=== PATIENT | female | born 1955 | race Caucasian/White ===

== ENCOUNTER 2016-09-21 10:36 | Outpatient (CLI) | payer MEDICARE, MEDICAID | END 2016-09-21 23:59 | disposition home or self-care (01) | DX: R42 Dizziness and giddiness (principal); G43.909 Migraine, unspecified, not intractable, without status migrainosus; E03.9 Hypothyroidism, unspecified ==

== ENCOUNTER 2016-11-05 09:00 | Outpatient (CLI) | payer MEDICARE, MEDICAID | END 2016-11-05 09:01 | disposition home or self-care (01) | DX: Z79.899 Other long term (current) drug therapy (principal) ==

== ENCOUNTER 2016-11-07 15:50 | Emergency (ER) | payer MEDICARE, MEDICAID | END 2016-11-07 17:26 | disposition home or self-care (01) | DX: J32.8 Other chronic sinusitis (principal); B97.89 Other viral agents as the cause of diseases classified elsewhere; Z77.120 Contact with and (suspected) exposure to mold (toxic); I10 Essential (primary) hypertension; E78.00 Pure hypercholesterolemia, unspecified; E03.9 Hypothyroidism, unspecified; M79.7 Fibromyalgia ==

== ENCOUNTER 2017-03-11 06:42 | Outpatient (CLI) | payer MEDICARE, MEDICAID ==
[2017-03-11 18:20] LABS: POTASSIUM 3.1 mmol/L (3.5-5.0)
== END 2017-03-11 06:43 | disposition home or self-care (01) ==
LOC: LAB.S 06:42
PROVIDERS: ATTEND Nurse Practitioner Family
DX: E87.6 Hypokalemia (principal); E03.9 Hypothyroidism, unspecified
CPT/HCPCS: 36415; 84132; 84443

== ENCOUNTER 2017-05-01 13:09 | Outpatient (CLI) | payer MEDICARE, MEDICAID | END 2017-05-01 13:10 | disposition home or self-care (01) | LOC: LAB.F 13:09 | PROVIDERS: ATTEND Nurse Practitioner Family | DX: E87.6 Hypokalemia (principal) | CPT/HCPCS: 36415; 84132 ==

== ENCOUNTER 2017-08-08 15:35 | Outpatient (CLI) | payer MEDICARE, MEDICAID ==
--- NOTE | 2017-08-09 15:25 | Mammography Report ---
DIGITAL SCREENING MAMMOGRAM: 08/08/2017 CLINICAL INDICATION: A 61-year-old with history of benign biopsy, for screening. COMPARISON: 03/2016. TECHNIQUE: Routine CC and MLO projections were obtained of the breasts. Bilateral laterally exaggerated craniocaudal views. FINDINGS: The breasts again demonstrate scattered fibroglandular densities bilaterally. A few punctate, typically benign calcifications are present. No suspicious masses, clustered microcalcifications, or regions of architectural distortion are identified. IMPRESSION: BENIGN FINDINGS. RECOMMENDATION: ROUTINE ANNUAL SCREENING UNLESS OTHERWISE CLINICALLY INDICATED. BIRADS CATEGORY 2-BENIGN FINDINGS. STANDARD QUALIFYING STATEMENTS: 1. This examination was reviewed with the aid of Computer-Aided Detection (CAD). 2. A negative or benign imaging report should not delay biopsy if clinically suspicious findings are present. Consider surgical consultation if warranted. More than 5% of cancers are not identified by imaging. 3. Dense breasts may obscure an underlying neoplasm. TD: 08/09/2017 15:21
== END 2017-08-08 15:36 | disposition home or self-care (01) ==
LOC: DI.S 15:35
PROVIDERS: ATTEND Obstetrics & Gynecology
DX: Z12.31 Encounter for screening mammogram for malignant neoplasm of breast (principal)
CPT/HCPCS: 77067

== ENCOUNTER 2018-02-17 11:49 | Outpatient (CLI) | payer MEDICARE, MEDICAID ==
[2018-02-17 18:14] LABS: THYROID STIMULATING HORMONE 1.27 uIU/mL (0.34-5.60)
== END 2018-02-17 11:50 ==
LOC: LAB.S 11:49
PROVIDERS: ATTEND Nurse Practitioner Family
DX: R53.83 Other fatigue (principal)
CPT/HCPCS: 36415; 82607; 84443

== ENCOUNTER 2018-12-22 15:33 | Emergency (ER) | payer MEDICARE, MEDICAID ==
[2018-12-22 15:38] VITALS: BP 182/86
--- NOTE | 2018-12-22 16:52 | ED Physician Documentation ---
PD MARCELLO HEENT - Stated complaint Stated Complaint: TOOTH PX - Chief complaint Chief Complaint: General - History obtained from History obtained from: Patient - History of Present Illness Timing - onset: How many days ago (few) Timing - duration: Days (few) Timing - details: Gradual onset, Still present (much worse today) Location: Tooth (left lower with gum swelling for 1-2 days) Worsens: Swalllowing, Temperatures, Other (chewing) Recently seen: Not recently seen Review of Systems Constitutional: denies: Fever, Myalgias Nose: denies: Rhinorrhea / runny nose, Congestion Throat: denies: Sore throat Respiratory: denies: Cough PD PAST MEDICAL HISTORY - Past Medical History Cardiovascular: Hypertension, High cholesterol Respiratory: None Endocrine/Autoimmune: HyPOthyroidism GI: None : None Psych: None Musculoskeletal: Fibromyalgia, Chronic back pain Derm: None - Past Surgical History General: Cholecystectomy, Appendectomy Ortho: Rotator cuff repair, Carpal Tunnel surgery, Spine surgery, 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, Hysterectomy, Oophrectomy, Other HEENT: Other - Present Medications Home Medications: Ambulatory Orders Medication Instructions Recorded Confirmed Bupropion HCl [Wellbutrin Xl] 300 mg PO DAILY 04/21/15 10/24/15 Diclofenac Sodium [Voltaren] 100 gm TP DAILY PRN 04/21/15 10/24/15 Estradiol Valerate [Delestrogen] 10 mg IM ONCE 04/21/15 10/24/15 Lidocaine [Lidoderm] 700 mg TP ONCE PRN 04/21/15 10/24/15 Pregabalin [Lyrica] 300 mg ORAL DAILY 04/21/15 10/24/15 RX: Levothyroxine [Synthroid] 100 mg ORAL DAILY 04/21/15 10/24/15 RX: Topiramate 100 mg PO DAILY 04/21/15 10/24/15 Valsartan/Hydrochlorothiazide 1 tab ORAL DAILY 04/21/15 10/24/15 [Diovan Hct 80-12.5 mg Tablet] raNITIdine [Zantac] 150 mg PO BID 04/21/15 10/24/15 Multivitamin [Multi-Vitamin Daily] 1 ea PO DAILY 05/17/15 10/24/15 RX: Vit D3/Folic Acid/B2/B6/B12 2,000 ea PO QDBREAKFAST 05/17/15 10/24/15 [Folgard Tablet] Guaifenesin/Pseudoephedrne HCl 1 each PO BID PRN #20 tab.er.12h 11/07/16 [Mucinex D ER 600-60 mg Tablet] Mometasone Furoate [Nasonex] 1 spray NS BID #1 spray.pump 11/07/16 RX: predniSONE [Deltasone] 60 mg PO DAILY 5 Days tablet 11/07/16 guaiFENesin/CODEINE [Robitussin AC] 5 - 10 ml PO Q6H PRN #120 ml 11/07/16 Hydrocodone/Acetaminophen [[place] 1 - 2 each PO Q6H PRN #20 tablet 12/22/18 5-325 Tablet] RX: Clindamycin HCl [Clindamycin 300 mg PO TID #21 capsule 12/22/18 300MG CAP] RX: Naproxen 375 mg PO BID #20 tablet 12/22/18 - Allergies Allergies/Adverse Reactions: Allergies Allergy/AdvReac Type Severity Reaction Status Date / Time prochlorperazine AdvReac Anxiety Verified 12/22/18 15:38 [From Compazine] prochlorperazine edisylate * AdvReac Anxiety Verified 12/22/18 15:38 [From Compazine] prochlorperazine maleate * AdvReac Anxiety Verified 12/22/18 15:38 [From Compazine] PD ED PE NORMAL - Vitals Vital signs reviewed: Yes - General General: Alert and oriented X 3, Well developed/nourished, Other (appears in pain) - HEENT HEENT: Pharynx benign. No: Dentition benign (multiple caries. Left lower tooth with decay and has swelling/tender along gum line. No notable fluctuance per se. ) - Neck Neck: Supple, no meningeal sign, No adenopathy - Cardiac Cardiac: RRR, No murmur - Respiratory Respiratory: Clear bilaterally Results - Vitals Vitals: Vital Signs - 24 hr 12/22/18 15:35 Temperature 36.7 C Heart Rate 82 Respiratory 14 Rate Blood Pressure 182/86 H O2 Saturation 99 Oxygen O2 Source Room air PD MEDICAL DECISION MAKING - ED course Complexity details: considered differential (left lower dental infection), d/w patient Departure - Departure Disposition: 01 Home, Self Care Clinical Impression: Infected dental caries Condition: Stable Record reviewed to determine appropriate education?: Yes Instructions: ED Abscess Dental Follow-Up: Gilma Souza PA-C [Primary Care Provider] - Prescriptions: RX: Clindamycin HCl [Clindamycin 300MG CAP] 300 mg PO TID #21 capsule Hydrocodone/Acetaminophen [[place] 5-325 Tablet] 1 - 2 each PO Q6H PRN #20 tablet PRN Reason: Pain RX: Naproxen 375 mg PO BID #20 tablet Comments: You can use some ice or cool towels to the gum area periodically to help reduce some of the swelling. Only do that if it does not cause it to hurt more. Use some anti-inflammatories such as naproxen twice daily with food. Add Tylenol or hydrocodone as needed for pain. Clindamycin as directed for the next week for the infection. Follow-up with your dentist as the soonest appointment for recheck and more definitive care of the tooth area. Discharge Date/Time: 12/22/18 17:36
[2018-12-22] MEDS ORDERED: HYDROcod/ACETAM 5/325 MG TABLET PO STA (17:12)
[2018-12-22] MEDS ORDERED: NAPROXEN 250 MG TABLET PO STA (17:13)
[2018-12-22] MEDS ORDERED: CLINDAMYCIN 150 MG CAPSULE PO STA (17:13)
== END 2018-12-22 17:36 | disposition home or self-care (01) ==
LOC: ED 15:33
DX: K04.7 Periapical abscess without sinus (principal); K02.9 Dental caries, unspecified; I10 Essential (primary) hypertension
CPT/HCPCS: 99283; A9270

== ENCOUNTER 2018-12-30 17:15 | Emergency (ER) | payer MEDICARE, MEDICAID ==
[2018-12-30 17:28] VITALS: BP 174/87
--- NOTE | 2018-12-30 17:55 | ED Physician Documentation ---
History of Present Illness - Stated complaint Stated Complaint: LT ARM SWELL/BRUISE BITE - Chief complaint Chief Complaint: Ext Problem - History obtained from History obtained from: Patient - History of Present Illness Timing: Today Pain level max: 5 Pain level now: 3 Improved by: rest Worsened by: nothing - Additonal information Additional information: Patient states that she was moving a basket today when she thinks she was bit by an insect. States redness and swelling noted to the volar aspect of the left wrist. As this decreased, bruising became apparent. Worse with movement and better with rest. She states that it is painful. She denies any trauma. Denies falling. Has full range of motion of the wrist. No numbness or tingling. 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 : None HEENT: None Psych: None Musculoskeletal: Fibromyalgia, Chronic back pain Derm: None - Past Surgical History Past Surgical History: Yes General: Cholecystectomy, Appendectomy Ortho: Rotator cuff repair, Carpal Tunnel surgery, Spine surgery, 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, Hysterectomy, Oophrectomy, Other HEENT: Other - Present Medications Home Medications: Ambulatory Orders Medication Instructions Recorded Confirmed Bupropion HCl [Wellbutrin Xl] 300 mg PO DAILY 04/21/15 10/24/15 Diclofenac Sodium [Voltaren] 100 gm TP DAILY PRN 04/21/15 10/24/15 Estradiol Valerate [Delestrogen] 10 mg IM ONCE 04/21/15 10/24/15 Levothyroxine [Synthroid] 100 mg ORAL DAILY 04/21/15 10/24/15 Lidocaine [Lidoderm] 700 mg TP ONCE PRN 04/21/15 10/24/15 Pregabalin [Lyrica] 300 mg ORAL DAILY 04/21/15 10/24/15 Topiramate 100 mg PO DAILY 04/21/15 10/24/15 Valsartan/Hydrochlorothiazide 1 tab ORAL DAILY 04/21/15 10/24/15 [Diovan Hct 80-12.5 mg Tablet] raNITIdine [Zantac] 150 mg PO BID 04/21/15 10/24/15 Multivitamin [Multi-Vitamin Daily] 1 ea PO DAILY 05/17/15 10/24/15 Vit D3/Folic Acid/B2/B6/B12 2,000 ea PO QDBREAKFAST 05/17/15 10/24/15 [Folgard Tablet] Guaifenesin/Pseudoephedrne HCl 1 each PO BID PRN #20 tab.er.12h 11/07/16 [Mucinex D ER 600-60 mg Tablet] Mometasone Furoate [Nasonex] 1 spray NS BID #1 spray.pump 11/07/16 guaiFENesin/CODEINE [Robitussin AC] 5 - 10 ml PO Q6H PRN #120 ml 11/07/16 predniSONE [Deltasone] 60 mg PO DAILY 5 Days tablet 11/07/16 Clindamycin HCl [Clindamycin 300MG 300 mg PO TID #21 capsule 12/22/18 CAP] Hydrocodone/Acetaminophen [[place] 1 - 2 each PO Q6H PRN #20 tablet 12/22/18 5-325 Tablet] Naproxen 375 mg PO BID #20 tablet 12/22/18 - Allergies Allergies/Adverse Reactions: Allergies Allergy/AdvReac Type Severity Reaction Status Date / Time prochlorperazine AdvReac Anxiety Verified 12/30/18 17:28 [From Compazine] prochlorperazine edisylate * AdvReac Anxiety Verified 12/30/18 17:28 [From Compazine] prochlorperazine maleate * AdvReac Anxiety Verified 12/30/18 17:28 [From Compazine] - Social History Does the pt smoke?: No Smoking Status: Never smoker Does the pt drink ETOH?: No Does the pt have substance abuse?: Yes Substance Use and Type: Marijuana - Immunizations Immunizations are current?: Yes - POLST Patient has POLST: No PD ED PE NORMAL - Vitals Vital signs reviewed: Yes - General General: Alert and oriented X 3, No acute distress - HEENT HEENT: Moist mucous membranes - Neck Neck: Supple, no meningeal sign - Extremities Extremities: Other (L wrist - Ecchymosis to the volar aspect of the wrist as well as the thenar eminence. No scaphoid tenderness. No bony tenderness. Full range of motion of the wrist without pain. Neurovascular intact. No erythema to suggest cellulitis.) - Neuro Neuro: Alert and oriented X 3 Results - Vitals Vitals: Vital Signs - 24 hr 12/30/18 17:22 Temperature 37.3 C Heart Rate 78 Respiratory 14 Rate Blood Pressure 174/87 H O2 Saturation 100 Oxygen O2 Source Room air PD MEDICAL DECISION MAKING - ED course Complexity details: considered differential, d/w patient ED course: Patient adamantly denies any trauma. Her history sounds consistent with a mild allergic reaction that had and now has residual bruising. She requests a splint for comfort. Refuses an xray. Placed in a Velcro splint. We will follow-up with her doctor for further care. No need for antibiotics or steroids at this time. Patient counseled regarding signs and symptoms for which I believe and urgent re-evaluation would be necessary. Patient with good understanding of and agreement to plan and is comfortable going home at this time This document was made in part using voice recognition software. While efforts are made to proofread this document, sound alike and grammatical errors may occur. Departure - Departure Disposition: 01 Home, Self Care Clinical Impression: Insect bite Qualifiers: Encounter type: initial encounter Site of insect bite: wrist Laterality: left Qualified Code(s): S60.862A - Insect bite (nonvenomous) of left wrist, initial encounter Condition: Good Instructions: ED Bite Insect Follow-Up: Gilma Souza PA-C [Primary Care Provider] - Within 3 Days Comments: The cause of your symptoms is unclear. Wear the splint to help with any discomfort for the next 2 days and then remove it. Return if you worsen. Especially for increasing redness, fevers or pain. Discharge Date/Time: 12/30/18 18:10
== END 2018-12-30 18:10 | disposition home or self-care (01) ==
LOC: ED 17:15
DX: S60.862A Insect bite (nonvenomous) of left wrist, initial encounter (principal); W57.XXXA Bitten or stung by nonvenomous insect and other nonvenomous arthropods, initial encounter; I10 Essential (primary) hypertension
CPT/HCPCS: 99282; 99283

== ENCOUNTER 2019-02-18 10:41 | Outpatient (CLI) | payer MEDICARE, MEDICAID | END 2019-02-18 10:42 | disposition home or self-care (01) | LOC: LAB.S 10:41 | PROVIDERS: ATTEND Physician Assistant Medical | DX: E78.5 Hyperlipidemia, unspecified (principal); E87.6 Hypokalemia; Z79.899 Other long term (current) drug therapy; E03.9 Hypothyroidism, unspecified | CPT/HCPCS: 80053; 80061; 83721; 84443; 85025 ==

== ENCOUNTER 2019-02-20 12:34 | Emergency (ER) | payer MEDICARE, MEDICAID ==
[2019-02-20 12:44] VITALS: BP 149/82
[2019-02-20] MEDS ORDERED: oxyCODONE 5 MG TABLET PO STA (12:56)
--- NOTE | 2019-02-20 12:58 | ED Physician Documentation ---
PD HPI HEAD INJURY - Stated complaint Stated Complaint: L KNEE/HEAD INJURY - Chief complaint Chief Complaint: Trauma Hd/Nk - History obtained from History obtained from: Patient - History of Present Illness Mechanism of head injury: Fell (This is a very pleasant 63-year-old woman with history of fibromyalgia who presents after a trip and fall forward when she was going her door. It happened around 11 AM. She is wearing flip-flops and simply tripped on the threshold. Hit her forehead on the hardwood floor and also hit her left knee. She is not sure if she remembers the whole thing, there is some partial amnesia. Now complains of frontal headache and severe left knee pain. She has some difficulty walking because of that. No other injuries.) Review of Systems Constitutional: denies: Fever, Chills Cardiac: denies: Chest pain / pressure, Palpitations Respiratory: denies: Dyspnea, Cough GI: reports: Nausea. 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, Hysterectomy, Oophrectomy, Other HEENT: Other - Present Medications Home Medications: Ambulatory Orders Medication Instructions Recorded Confirmed Bupropion HCl [Wellbutrin Xl] 300 mg PO DAILY 04/21/15 10/24/15 Diclofenac Sodium [Voltaren] 100 gm TP DAILY PRN 04/21/15 10/24/15 Estradiol Valerate [Delestrogen] 10 mg IM ONCE 04/21/15 10/24/15 Levothyroxine [Synthroid] 100 mg ORAL DAILY 04/21/15 10/24/15 Lidocaine [Lidoderm] 700 mg TP ONCE PRN 04/21/15 10/24/15 Pregabalin [Lyrica] 300 mg ORAL DAILY 04/21/15 10/24/15 Topiramate 100 mg PO DAILY 04/21/15 10/24/15 Valsartan/Hydrochlorothiazide 1 tab ORAL DAILY 04/21/15 10/24/15 [Diovan Hct 80-12.5 mg Tablet] raNITIdine [Zantac] 150 mg PO BID 04/21/15 10/24/15 Multivitamin [Multi-Vitamin Daily] 1 ea PO DAILY 05/17/15 10/24/15 Vit D3/Folic Acid/B2/B6/B12 2,000 ea PO QDBREAKFAST 05/17/15 10/24/15 [Folgard Tablet] Guaifenesin/Pseudoephedrne HCl 1 each PO BID PRN #20 tab.er.12h 11/07/16 [Mucinex D ER 600-60 mg Tablet] Mometasone Furoate [Nasonex] 1 spray NS BID #1 spray.pump 11/07/16 guaiFENesin/CODEINE [Robitussin AC] 5 - 10 ml PO Q6H PRN #120 ml 11/07/16 predniSONE [Deltasone] 60 mg PO DAILY 5 Days tablet 11/07/16 Clindamycin HCl [Clindamycin 300MG 300 mg PO TID #21 capsule 12/22/18 CAP] Hydrocodone/Acetaminophen [[place] 1 - 2 each PO Q6H PRN #20 tablet 12/22/18 5-325 Tablet] Naproxen 375 mg PO BID #20 tablet 12/22/18 Oxycodone HCl/Acetaminophen 1 - 2 each PO Q6H PRN #14 tablet 02/20/19 [Percocet 5-325 mg Tablet] - Allergies Allergies/Adverse Reactions: Allergies Allergy/AdvReac Type Severity Reaction Status Date / Time prochlorperazine AdvReac Anxiety Verified 12/30/18 17:28 [From Compazine] prochlorperazine edisylate * AdvReac Anxiety Verified 12/30/18 17:28 [From Compazine] prochlorperazine maleate * AdvReac Anxiety Verified 12/30/18 17:28 [From Compazine] - Social History Does the pt smoke?: No Smoking Status: Never smoker Does the pt drink ETOH?: No Does the pt have substance abuse?: Yes - Immunizations Immunizations are current?: Yes - POLST Patient has POLST: No PD ED PE NORMAL - Vitals Vital signs reviewed: Yes - General General: Alert and oriented X 3, No acute distress - HEENT HEENT: PERRL, EOMI, Other (No obvious areas of contusion or swelling of the forehead, no bony facial tenderness.) - Neck Neck: Supple, no meningeal sign, No bony TTP - Extremities Extremities: Other (Diffuse tenderness without deformity or ecchymosis of the left knee, no effusion. No limited range of motion.) - Neuro Neuro: Alert and oriented X 3, log turner 2-12 intact, No motor deficit, No sensory deficit, Normal speech Eye Opening: Spontaneous Motor: Obeys Commands Verbal: Oriented GCS Score: 15 Results - Vitals Vitals: Vital Signs - 24 hr 02/20/19 12:37 Temperature 36.5 C Heart Rate 91 Respiratory 14 Rate Blood Pressure 149/82 H O2 Saturation 98 Oxygen O2 Source Room air - Rads (name of study) Ct Head Radiology: EMP read contemporaneously (no frx/ICH) L knee 4v XR Radiology: EMP read contemporaneously (normal) PD MEDICAL DECISION MAKING - ED course ED course: 63-year-old woman with ground-level fall, no syncope but she hit her head hard enough that she has concussive symptoms. Head CT was negative as well as a left knee x-ray. No evidence of ligamentous injury on examination. Consideration was given to the possibility of a cervical spine injury in this patient. The nexus criteria were applied. The patient has no focal neurologic deficit on examination. The patient has no midline spinal tenderness. The patient has a normal level of consciousness. The patient has no evidence of intoxication. There is no distracting injury presents. Given that these were all negative, per the Nexus criteria the cervical spine was cleared without imaging. Departure - Departure Disposition: 01 Home, Self Care Clinical Impression: Concussion Qualifiers: Encounter type: initial encounter Loss of consciousness presence/duration: with LOC of 30 min or less Qualified Code(s): S06.0X1A - Concussion with loss of consciousness of 30 minutes or less, initial encounter Contusion Qualifiers: Encounter type: initial encounter Contusion area: knee Laterality: left Qualified Code(s): S80.02XA - Contusion of left knee, initial encounter Condition: Good Record reviewed to determine appropriate education?: Yes Instructions: ED Concussion Prescriptions: Oxycodone HCl/Acetaminophen [Percocet 5-325 mg Tablet] 1 - 2 each PO Q6H PRN #14 tablet PRN Reason: pain Comments: Recheck with your doctor early next week, return for new or worsening symptoms. Do not drink or drive while taking narcotic pain medication. Note that many narcotic pain relievers also contain Tylenol/acetaminophen. Please ensure that your total dose of acetaminophen from all sources does not exceed 3 g (3000 mg) per day. You may get constipated while on this medication. Take a stool softener such as Colace twice a day while you are on it. Also add an [id number] laxative such as senna or MiraLAX on any day that you do not have a bowel movement. If you received a narcotic pain medication or sedative while in the emergency department, do not drive for the next 24 hours. Your blood pressure was elevated today on check into the emergency department. This does not mean that you have hypertension, it is a common phenomenon to come to the emergency department and have elevated blood pressure. I recommend that you see your primary care physician within the week to have it rechecked when yo u are feeling better.
--- NOTE | 2019-02-20 13:30 | CT Report ---
Reason: head inj Procedure Date: 02/20/2019 Accession Number: [id number] / [id number] Procedure: CT - HEAD WO CPT Code: FULL RESULT: EXAM: CT HEAD EXAM DATE: 02/20/2019 01:15 PM. CLINICAL HISTORY: 63-year-old presenting after ground-level fall with forehead strike. Evaluate for intracranial pathology. COMPARISON: None. TECHNIQUE: Multiaxial CT images were obtained from the foramen magnum to the vertex. Reformats: Sagittal and coronal. IV contrast: None. In accordance with CT protocol optimization, one or more of the following dose reduction techniques were utilized for this exam: automated exposure control, adjustment of mA and/or KV based on patient size, or use of iterative reconstructive technique. FINDINGS: Parenchyma: No acute parenchymal hemorrhage, mass, or midline shift. Mild bilateral areas of white matter hypoattenuation seen that are age-indeterminate but appear chronic. There is no convincing CT evidence of acute infarct. Cortical volume appears age-appropriate. Extraaxial Spaces: Normal for age. No subdural or epidural collections identified. Ventricles: Normal in size and position. Sinuses and Orbits: Imaged paranasal sinuses, orbits, and mastoids show no significant abnormality. Bones: No evidence of fracture or calvarial defect. Other: Vascular calcifications of the cavernous ICA segments. Minimal to mild soft tissue stranding involving the right frontal scalp. IMPRESSION: 1. No definite acute intracranial pathology seen; specifically, no acute infarct, acute intracranial hemorrhage, mass, hydrocephalus, or midline shift. 2. Minimal to mild soft tissue stranding involving the right frontal scalp that may represent hematoma. No definite calvarial fracture. RADIA
--- NOTE | 2019-02-20 13:43 | XRAY Report ---
Reason: knee inj Procedure Date: 02/20/2019 Accession Number: [id number] / [id number] Procedure: XR - Knee 4 View LT CPT Code: FULL RESULT: EXAM: LEFT KNEE RADIOGRAPHY EXAM DATE: 02/20/2019 01:31 PM. CLINICAL HISTORY: Knee injury. COMPARISON: None. TECHNIQUE: 4 views. FINDINGS: Bones: No acute fracture. Joints: No dislocation or subluxation. No significant joint space narrowing. No evidence of joint effusion. Soft Tissues: Unremarkable. IMPRESSION: No acute osseous or articular abnormality. RADIA
== END 2019-02-20 14:05 | disposition home or self-care (01) ==
LOC: ED 12:34
DX: S06.0X1A Concussion with loss of consciousness of 30 minutes or less, initial encounter (principal); S80.02XA Contusion of left knee, initial encounter; W01.0XXA Fall on same level from slipping, tripping and stumbling without subsequent striking against object, initial encounter; Y92.008 Other place in unspecified non-institutional (private) residence as the place of occurrence of the external cause; I10 Essential (primary) hypertension
CPT/HCPCS: 70450; 73564; 99284; A9270

== ENCOUNTER 2019-02-27 08:42 | Outpatient (CLI) | payer MEDICARE, MEDICAID ==
[2019-02-27 17:54] LABS: BASOPHILS # (AUTO) 0.1 10^3/uL (0.0-0.1); BASOPHILS % (AUTO) 0.7 %; EOSINOPHILS # (AUTO) 0.1 10^3/uL (0.0-0.7); EOSINOPHILS % (AUTO) 1.8 %; HGB - HEMOGLOBIN 14.4 g/dL (12.0-16.0); LYMPHOCYTES # (AUTO) 3.1 10^3/uL (1.5-3.5); LYMPHOCYTES % (AUTO) 42.1 %; MEAN CORPUSCULAR HGB CONC 30.9 g/dL (32.0-36.0); MEAN CORPUSCULAR VOLUME 93.8 fL (81.0-99.0); MEAN PLATELET VOLUME 11.3 fL (7.9-10.8); MONOCYTES # (AUTO) 0.6 10^3/uL (0.0-1.0); NEUTROPHILS # (AUTO) 3.4 10^3/uL (1.5-6.6); NEUTROPHILS % (AUTO) 47.3 %; PLT - PLATELET COUNT 262 10^3/uL (130-450); RED BLOOD COUNT 4.97 10^6/uL (4.20-5.40); RED CELL DISTRIBUTION WIDTH 14.6 % (12.0-15.0); WHITE BLOOD COUNT 7.2 x10^3/uL (4.8-10.8)
[2019-02-27 18:19] LABS: ALBUMIN/GLOBULIN RATIO 1.5 (1.0-2.2); ALKALINE PHOSPHATASE 61 IU/L (42-121); ALT ALANINE AMINOTRANSFERASE 14 IU/L (10-60); AST ASPARTATE AMINOTRANSFERASE 18 IU/L (10-42); BILIRUBIN,TOTAL 0.6 mg/dL (0.2-1.0); BUN - BLOOD UREA NITROGEN 20 mg/dL (6-20); CALCIUM 9.1 mg/dL (8.5-10.3); CARBON DIOXIDE - CO2 23 mmol/L (21-32); CHLORIDE 105 mmol/L (101-111); CHOL/HDL RATIO 3.6 (<4.4); CHOLESTEROL 353 mg/dL; CREATININE 0.8 mg/dL (0.4-1.0); GFR - MDRD 72 (>89); GLUCOSE 91 mg/dL (70-100); HDL CHOLESTEROL 99 mg/dL; LDL CHOLESTEROL,CALCULATED 235 mg/dL; LDL/HDL RATIO 2.4 (<4.4); SODIUM 139 mmol/L (135-145); TOTAL PROTEIN 6.7 g/dL (6.7-8.2); VLDL CHOLESTEROL 19 mg/dL
== END 2019-02-27 08:43 | disposition home or self-care (01) ==
LOC: LAB.S 08:42
PROVIDERS: ATTEND Physician Assistant Medical
DX: E78.5 Hyperlipidemia, unspecified (principal); E87.6 Hypokalemia; Z51.81 Encounter for therapeutic drug level monitoring; Z79.899 Other long term (current) drug therapy; E03.9 Hypothyroidism, unspecified
CPT/HCPCS: 36415; 80053; 80061; 83721; 84443; 85025

== ENCOUNTER 2019-03-12 15:03 | Outpatient (CLI) | payer MEDICARE, MEDICAID ==
--- NOTE | 2019-03-16 13:14 | DEXA Report ---
Reason: POSTMENOPAUSAL STATUS Procedure Date: 03/12/2019 Accession Number: [id number] / [id number] Procedure: DEX - Dexa Spine and/or Hip CPT Code: FULL RESULT: EXAM: Dexa Spine and/or Hip DATE: 03/12/2019 3:36 PM CLINICAL HISTORY: POSTMENOPAUSAL STATUS TECHNIQUE: Dual energy x-ray absorptiometry (DXA) was performed on a [employer] System. Regions measured are the AP Spine, femoral neck, and if needed forearm. COMPARISON: None. In accordance with the International Society for Clinical Densitometry (ISCD) guidelines, data from previous exams may be reanalyzed using current recommendations and techniques. This is done to allow a more accurate basis for comparison with the current study. FINDINGS: The data for the lumbar spine is as follows: BMD (g/cm/cm) T-SCORE Z-SCORE REGION L1 0.947 -1.5 -0.2 L2 1.029 -1.4 -0.1 L3 1.077 -1.0 0.3 L4 0.994 -1.7 -0.4 TOTAL 1.013 -1.4 -0.1 NOTE: All evaluable vertebrae are used for classification The data for the hip is as follows: BMD (g/cm/cm) T-SCORE Z-SCORE REGION Neck 0.777 -1.9 -0.6 TOTAL 0.794 -1.7 -0.7 NOTE: The femoral neck or total proximal femur, whichever is lowest, is used for classification. IMPRESSION: THE WHO CLASSIFICATION BASED ON THE INTERNATIONAL REFERENCE STANDARD IS OSTEOPENIA REFERENCE LEFT FEMORAL NECK. THE FRACTURE RISK IS INCREASED. RECOMMENDATION: Patients with diagnosis of osteoporosis or osteopenia should have regular bone mineral density assessment. For those eligible for Medicare, routine testing is allowed once every 2 years. Testing frequency can be increased for patients who have rapidly progressing disease or for those who are receiving medical therapy to restore bone mass. COMMENT: World Health Organization (WHO) definitions for osteoporosis and osteopenia: NORMAL BMD: T-score at -1.0 or higher, fracture risk is low OSTEOPENIA BMD: T-score between -1.0 and -2.5, fracture risk is increased. OSTEOPOROSIS BMD: T-score at -2.5 or lower, fracture risk is high. National Osteoporosis Foundation recommends: 1. Obtain adequate dietary calcium (at least 1200 mg per day) and vitamin D (400-800 international units per day). 2. Participate, as appropriate, in regular weightbearing and muscle-strengthening exercise. 3. Avoid tobacco use and reduce alcohol and caffeine intake. 4. For more detailed information see the website at www.NOF.org.
== END 2019-03-12 15:04 | disposition home or self-care (01) ==
LOC: DI 15:03
PROVIDERS: ATTEND Physician Assistant Medical
DX: M85.89 Other specified disorders of bone density and structure, multiple sites (principal)
CPT/HCPCS: 77080

== ENCOUNTER 2019-03-17 14:08 | Outpatient (CLI) | payer MEDICARE, MEDICAID ==
--- NOTE | 2019-03-19 14:04 | XRAY Report ---
Reason: PAIN IN LEFT HIP Procedure Date: 03/17/2019 Accession Number: [id number] / [id number] Procedure: XRS - Hip w/Pelvis 2-3V LT CPT Code: FULL RESULT: EXAM: LEFT HIP RADIOGRAPHY EXAM DATE: 03/17/2019 02:30 PM. CLINICAL HISTORY: Left hip pain. Fall 3 weeks ago. COMPARISON: None. TECHNIQUE: 2 views. FINDINGS: Bones: Normal. No fractures or bone lesion. Joints: Normal. No dislocation. The hip joint space is preserved. Soft Tissues: Phleboliths noted. Right pelvic surgical clip noted. IMPRESSION: Normal hip radiography. RADIA
== END 2019-03-17 14:09 | disposition home or self-care (01) ==
LOC: DI.S 14:08
PROVIDERS: ATTEND Internal Medicine
DX: M25.552 Pain in left hip (principal)

== ENCOUNTER 2019-04-03 16:09 | Outpatient (CLI) | payer MEDICARE, MEDICAID ==
--- NOTE | 2019-04-03 16:44 | XRAY Report ---
Reason: R FOOT AND ANKLE PAIN X 3 MONTHS Procedure Date: 04/03/2019 Accession Number: [id number] / [id number] Procedure: XR - Foot 3 View RT CPT Code: FULL RESULT: EXAM: RIGHT FOOT RADIOGRAPHY EXAM DATE: 04/03/2019 04:23 PM. CLINICAL HISTORY: Right foot and ankle pain x 3 months. COMPARISON: None. TECHNIQUE: 3 views. FINDINGS: Bones: Normal. No fractures or bone lesions. 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 Soft Tissues: Normal. No soft tissue swelling. IMPRESSION: 1. No acute fracture. 2. Severe right 1st MTP joint arthropathy as described above. RADIA
--- NOTE | 2019-04-03 16:50 | XRAY Report ---
Reason: R FOOT AND ANKLE PAIN X 3 MONTHS Procedure Date: 04/03/2019 Accession Number: [id number] / [id number] Procedure: XR - Ankle 3 View RT CPT Code: FULL RESULT: EXAM: RIGHT ANKLE RADIOGRAPHY EXAM DATE: 04/03/2019 04:23 PM. CLINICAL HISTORY: Right foot and ankle pain x 3 months. COMPARISON: None. TECHNIQUE: 3 views. FINDINGS: Bones: No acute finding. Tiny plantar calcaneal bone spur. Joints: Normal. No effusion. No subluxations. The ankle mortise is normally aligned. Soft Tissues: Normal. No soft tissue swelling. IMPRESSION: Tiny plantar calcaneal bone spur. Otherwise negative examination. RADIA
== END 2019-04-03 16:10 | disposition home or self-care (01) ==
LOC: DI 16:09
PROVIDERS: ATTEND Podiatrist
DX: M19.071 Primary osteoarthritis, right ankle and foot (principal); M77.31 Calcaneal spur, right foot

== ENCOUNTER 2019-05-15 12:04 | Outpatient (CLI) | payer MEDICARE, MEDICAID | END 2019-05-15 12:05 | disposition home or self-care (01) | LOC: LAB.S 12:04 | PROVIDERS: ATTEND Urology | DX: N39.41 Urge incontinence (principal) | CPT/HCPCS: 87086 ==

== ENCOUNTER 2019-08-21 16:09 | Emergency (ER) | payer MEDICARE, MEDICAID ==
--- NOTE | 2019-08-21 19:09 | ED Physician Documentation ---
History of Present Illness - Stated complaint Stated Complaint: GLF, LT HIP, RT WRIST, NECK PX - PCP REFERRAL - Chief complaint Chief Complaint: Trauma Ch/Bk - History obtained from History obtained from: Patient, Family - History of Present Illness Timing: How many days ago, Other (3 DAYS AGO) Pain level max: 9 Pain level now: 9 Quality: sharp Improved by: rest Worsened by: movement - Additonal information Additional information: 63-year-old female with history of cervical fusion, hypertension, hyperlipidemia who presents to the emergency department because of mechanical fall that happened 3 days ago. Patient was holding a box while walking on the road when she tripped on uneven road Fell forward. She has contusion to the left wrist on the ulnar aspect. She also reports of left hip pain. She has been able to ambulate with pain. Patient also reports of neck pain. She denies any numbness and tingling or weakness to her upper extremities. Patient reported of left- sided chest wall pain as well. Patient went to her primary care doctor and was told to come to the emergency department for further evaluation. She is not on anticoagulation. She denies associated head injury or headache. Review of Systems Constitutional: denies: Fever, Chills Eyes: denies: Loss of vision, Decreased vision Ears: denies: Loss of hearing, Ear pain Nose: denies: Rhinorrhea / runny nose Cardiac: reports: Other (left sided chest wall pain) Respiratory: denies: Dyspnea, Cough GI: denies: Abdominal Pain, Nausea, Vomiting Musculoskeletal: reports: Neck pain, Other (left lateral thigh contusion, left wrist ecchymoses) Neurologic: denies: Generalized weakness, Syncope, Seizure, Confused, LOC Psychiatric: denies: Suicidal PD PAST MEDICAL HISTORY - Past Medical History Cardiovascular: Hypertension, High cholesterol Respiratory: None Neuro: None Endocrine/Autoimmune: HyPOthyroidism GI: None 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 : None HEENT: None Psych: None Musculoskeletal: Fibromyalgia, Chronic back pain Derm: None - Past Surgical History Past Surgical History: Yes General: Cholecystectomy, Appendectomy Ortho: Rotator cuff repair, Carpal Tunnel surgery, Spine surgery, Other /FILM DEVELOPER: section, Hysterectomy, Oophrectomy, Other HEENT: Other - Present Medications Home Medications: Ambulatory Orders Medication Instructions Recorded Confirmed Bupropion HCl [Wellbutrin Xl] 300 mg PO DAILY 04/21/15 10/24/15 Diclofenac Sodium [Voltaren] 100 gm TP DAILY PRN 04/21/15 10/24/15 Estradiol Valerate [Delestrogen] 10 mg IM ONCE 04/21/15 10/24/15 Levothyroxine [Synthroid] 100 mg ORAL DAILY 04/21/15 10/24/15 Lidocaine [Lidoderm] 700 mg TP ONCE PRN 04/21/15 10/24/15 Pregabalin [Lyrica] 300 mg ORAL DAILY 04/21/15 10/24/15 Topiramate 100 mg PO DAILY 04/21/15 10/24/15 Valsartan/Hydrochlorothiazide 1 tab ORAL DAILY 04/21/15 10/24/15 [Diovan Hct 80-12.5 mg Tablet] raNITIdine [Zantac] 150 mg PO BID 04/21/15 10/24/15 Multivitamin [Multi-Vitamin Daily] 1 ea PO DAILY 05/17/15 10/24/15 Vit D3/Folic Acid/B2/B6/B12 2,000 ea PO QDBREAKFAST 05/17/15 10/24/15 [Folgard Tablet] Guaifenesin/Pseudoephedrne HCl 1 each PO BID PRN #20 tab.er.12h 11/07/16 [Mucinex D ER 600-60 mg Tablet] Mometasone Furoate [Nasonex] 1 spray NS BID #1 spray.pump 11/07/16 guaiFENesin/CODEINE [Robitussin AC] 5 - 10 ml PO Q6H PRN #120 ml 11/07/16 predniSONE [Deltasone] 60 mg PO DAILY 5 Days tablet 11/07/16 Clindamycin HCl [Clindamycin 300MG 300 mg PO TID #21 capsule 12/22/18 CAP] Hydrocodone/Acetaminophen [[place] 1 - 2 each PO Q6H PRN #20 tablet 12/22/18 5-325 Tablet] Naproxen 375 mg PO BID #20 tablet 12/22/18 Oxycodone HCl/Acetaminophen 1 - 2 each PO Q6H PRN #14 tablet 02/20/19 [Percocet 5-325 mg Tablet] Hydrocodone/Acetaminophen 1 - 2 each PO Q6H PRN #14 tablet 08/21/19 [Hydrocodon-Acetaminophen 5-325] - Allergies Allergies/Adverse Reactions: Allergies Allergy/AdvReac Type Severity Reaction Status Date / Time prochlorperazine AdvReac Anxiety Verified 08/21/19 16:13 [From Compazine] prochlorperazine edisylate * AdvReac Anxiety Verified 08/21/19 16:13 [From Compazine] prochlorperazine maleate * AdvReac Anxiety Verified 08/21/19 16:13 [From Compazine] - Social History Does the pt smoke?: No Smoking Status: Never smoker Does the pt drink ETOH?: No Does the pt have substance abuse?: Yes - Immunizations Immunizations are current?: Yes - POLST Patient has POLST: No PD ED PE NORMAL - General General: Alert and oriented X 3 - HEENT HEENT: Atraumatic - Neck Neck: Other (cervical midline tenderness. no crepitus or step off) - Cardiac Cardiac: RRR, Other (left sided chest wall tenderness. no crepitus. ) - Respiratory Respiratory: No respiratory distress, Clear bilaterally - Abdomen Abdomen: Normal bowel sounds - Back Back: No CVA TTP - Extremities Extremities: No deformity, Other (left distal ulnar with ecchymoses noted. no swelling. right thigh tenderness, ecchymoses. ) - Neuro Eye Opening: Spontaneous Motor: Obeys Commands Verbal: Oriented GCS Score: 15 Results - Vitals Vitals: Vital Signs - 24 hr 08/21/19 08/21/19 08/21/19 16:14 19:25 19:28 Temperature 36.5 C 36.7 C Heart Rate 63 59 L Respiratory 14 17 16 Rate Blood Pressure 127/72 121/65 O2 Saturation 100 97 Oxygen O2 Source Room air PD MEDICAL DECISION MAKING - ED course ED course: 63-year-old female with history of hypertension, cervical fusion, who presented to the emergency department for evaluation because of a mechanical fall 3 days ago.The patient remained hemodynamically stable. She has bilateral equal strength on both upper extremities 5 out of 5. Sensation remained intact. Patient was able to ambulate but with some pain due to left hip with ambulation. She reported of left-sided anterior chest wall tenderness, neck pain, left wrist pain and left hip pain. CT scan of the cervical spine with impression: C3/C6 anterior posterior fusion with no acute bony injury identified. CT scan of the chest without contrast with impression: No acute fracture or pneumothorax X-ray of the left wrist: No acute fracture or dislocation X-ray of left hip with pelvis did not show acute fracture or dislocation. Patient was given [place] for pain control.Diagnosis and treatment plan were discussed with the patient. At this time, no acute fracture dislocation were identified. I recommend rest, ice or heating pad as needed for sympatomatic relief. Patient was prescribed [place] for pain control. Outpatient follow-up with her primary care doctor soon as possible in 1 week was recommended. She expressed verbal understanding. At this time, patient was discharged in stable condition. Departure - Departure Disposition: 01 Home, Self Care Clinical Impression: Contusion of chest wall, Contusion of left hip and thigh, Contusion of left wrist, Cervical strain, acute Condition: Good Instructions: ED Contusion Soft Tissue, ED Contusion Chest Wall, ED Sprain Strain Neck Follow-Up: Hans Salazar MD [Primary Care Provider] - Within 1 week Prescriptions: Hydrocodone/Acetaminophen [Hydrocodon-Acetaminophen 5-325] 1 - 2 each PO Q6H PRN #14 tablet PRN Reason: pain Comments: PLEASE RETURN TO THE EMERGENCY DEPARTMENT IF YOU DEVELOP SHORTNESS OF BREATH, FEVER OF 100.4 OR GREATER OR ANY NEW OR CONCERNING SYMPTOMS. PLEASE CONTINUE TO USE ICE OR HEATING PAD OR BOTH FOR SYMPTOMATIC RELIEF. PLEASE FOLLOW UP WITH YOUR DOCTOR SOON POSSIBLE IN 1 WEEK.
--- NOTE | 2019-08-21 19:46 | XRAY Report ---
Reason: fall Procedure Date: 08/21/2019 Accession Number: [id number] / [id number] Procedure: XR - Hip w/Pelvis 2-3V LT CPT Code: Final Report FULL RESULT: EXAM: LEFT HIP RADIOGRAPHY EXAM DATE: 08/21/2019 07:17 PM. CLINICAL HISTORY: Fall. COMPARISON: HIP W/PELVIS 2-3V LT 03/17/2019 2:35 PM. TECHNIQUE: 2 views. FINDINGS: Bones: No acute fractures. Joints: No dislocation. The hip joint space is preserved. Soft Tissues: Unremarkable aside from pelvic phleboliths. IMPRESSION: No acute radiographic abnormalities. RADIA
--- NOTE | 2019-08-21 19:47 | CT Report ---
Reason: fall Procedure Date: 08/21/2019 Accession Number: [id number] / [id number] Procedure: CT - CHEST WO CPT Code: Final Report FULL RESULT: EXAM: CT CHEST EXAM DATE: 08/21/2019 06:58 PM. CLINICAL HISTORY: Fall. COMPARISONS: None. TECHNIQUE: Routine helical CT imaging was performed through the chest. IV contrast: None. Reconstructions: Coronal and sagittal. In accordance with CT protocol optimization, one or more of the following dose reduction techniques were utilized for this exam: automated exposure control, adjustment of mA and/or KV based on patient size, or use of iterative reconstructive technique. FINDINGS: Lungs/Pleura: No nodules, bronchial thickening, consolidation, or edema. Pulmonary vasculature is normal. No pericardial or pleural effusion. No pneumothorax. Mediastinum: Normal. No adenopathy or masses. The heart and great vessels are normal. Bones: Unremarkable. Visualized Abdomen: Post cholecystectomy. Other: None. IMPRESSION: No acute displaced fracture. No pneumothorax. RADIA
--- NOTE | 2019-08-21 19:47 | XRAY Report ---
Reason: fall Procedure Date: 08/21/2019 Accession Number: [id number] / [id number] Procedure: XR - Wrist 3 View LT CPT Code: Final Report FULL RESULT: EXAM: LEFT WRIST RADIOGRAPHY EXAM DATE: 08/21/2019 07:17 PM. CLINICAL HISTORY: Fall. COMPARISON: None. TECHNIQUE: 3 views. FINDINGS: Bones: Normal. No fractures or bone lesions. Joints: No subluxation. Minimal first MTP osteoarthritis. Soft Tissues: Normal. No soft tissue swelling. IMPRESSION: No acute findings. RADIA
[2019-08-21] MEDS ORDERED: HYDROcod/ACETAM 5/325 MG TABLET PO STA (19:49)
--- NOTE | 2019-08-21 20:11 | CT Report ---
Reason: fall Procedure Date: 08/21/2019 Accession Number: [id number] / [id number] Procedure: CT - CERVICAL SPINE WO CPT Code: Final Report FULL RESULT: EXAM: CT CERVICAL SPINE WITHOUT CONTRAST COMPARISON: CT head, 02/20/2019 CLINICAL HISTORY: Fall. Left shoulder/chest pain, neck pain. TECHNIQUE: Axial CT images were obtained through the cervical spine without contrast. Coronal and sagittal reconstructions are created from source data. In accordance with CT protocol optimization, one or more of the following dose reduction techniques were utilized for this exam: automated exposure control, adjustment of mA and/or KV based on patient size, or use of iterative reconstructive technique. FINDINGS: C0-C1, C1-C2 and dens basion alignment are normal. There has been C4-C5 corpectomy, with allograft placement. Anterior cervical disk fusion plate extends from C3-C6. No evidence of hardware loosening or failure. Dorsal bilateral lateral mass fusion extends from C3-C6, the facets are fused across those levels bilaterally. No evident hardware failure. Cervical spondylosis is most notable at C6-C7, presumably adjacent segment degeneration. No evident acute bony injuries identified. No malalignment. Visualized right upper chest shows no pulmonary nodules or masses. No pneumothorax. No thyroid mass. Epiglottis is normal. Base of tongue is normal. Vallecula is normal. IMPRESSION: C3-C6 anterior posterior fusion as described, without acute bony injury identified.
[2019-08-21 21:02] VITALS: BP 132/75
== END 2019-08-21 21:04 | disposition home or self-care (01) ==
LOC: ED 16:09
DX: S60.212A Contusion of left wrist, initial encounter (principal); S20.212A Contusion of left front wall of thorax, initial encounter; S70.02XA Contusion of left hip, initial encounter; S70.12XA Contusion of left thigh, initial encounter; S16.1XXA Strain of muscle, fascia and tendon at neck level, initial encounter; W01.0XXA Fall on same level from slipping, tripping and stumbling without subsequent striking against object, initial encounter; Y93.01 Activity, walking, marching and hiking; I10 Essential (primary) hypertension
CPT/HCPCS: 71250; 72125; 73110; 73502; 99284; A9270

== ENCOUNTER 2019-11-10 15:34 | Outpatient (CLI) | payer MEDICARE, MEDICAID ==
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
== END 2019-11-10 15:35 | disposition home or self-care (01) ==
LOC: SC 15:34
PROVIDERS: ATTEND Internal Medicine Pulmonary Disease
DX: G47.33 Obstructive sleep apnea (adult) (pediatric) (principal); G47.00 Insomnia, unspecified; E66.9 Obesity, unspecified; Z68.35 Body mass index [BMI] 35.0-35.9, adult

== ENCOUNTER 2019-12-18 13:39 | Outpatient (CLI) | payer MEDICARE, MEDICAID ==
--- NOTE | 2019-12-18 14:51 | XRAY Report ---
PROCEDURE: Hand 3 View BILAT INDICATIONS: PX IN BOTH HANDS TECHNIQUE: 3 bilateral views of the hand(s) acquired. COMPARISON: None FINDINGS: Bones: No fractures or dislocations. No suspicious bony lesions. Soft tissues: No suspicious soft tissue calcifications. IMPRESSION: No acute radiographic findings. If pain persists, cross-sectional imaging with CT or MRI could be con sidered. Reviewed by: Adriana Goyal MD on 12/18/2019 2:50 PM PDT Approved by: Adriana Goyal MD on 12/18/2019 2:50 PM PDT Station ID: [id number]
== END 2019-12-18 13:40 | disposition home or self-care (01) ==
LOC: DI.S 13:39
PROVIDERS: ATTEND Nurse Practitioner Family
DX: M79.642 Pain in left hand (principal); M79.641 Pain in right hand

== ENCOUNTER 2019-12-24 19:31 | Outpatient (CLI) | payer MEDICARE, MEDICAID | END 2019-12-24 19:32 | disposition home or self-care (01) | LOC: SC 19:31 | PROVIDERS: ATTEND Internal Medicine Pulmonary Disease | DX: G47.10 Hypersomnia, unspecified (principal); G47.00 Insomnia, unspecified; R53.83 Other fatigue; G47.8 Other sleep disorders; R06.81 Apnea, not elsewhere classified; E66.9 Obesity, unspecified; Z68.35 Body mass index [BMI] 35.0-35.9, adult | CPT/HCPCS: 95810 ==

== ENCOUNTER 2019-12-29 17:01 | Outpatient (CLI) | payer MEDICARE, MEDICAID ==
--- NOTE | 2019-12-29 16:35 | SLEEP CARE CONSULTATION ---
Information from patient questionnaire entered by Nevaeh Owen. I have reviewed and concur with the information entered by Nevaeh Owen. This document represents the service I personally performed and the decisions made by me, Lanie Tolliver MD, [facility]. History of Present Illness Service Date and Time: 12/29/2019 1540 Initial [place] Sleepiness Scale score: 8 Additional HPI information: To minimize the risk of COVID-19 exposure, the patient has requested and consented to this video telemedicine visit. The patient also agrees to having her insurance billed. HPI: Ms. Nicholas was called for follow up of the sleep study she had on 12/24/2019. The polysomnography showed that the patient had normal sleep efficiency. The sleep architecture was normal as well. Respiratory monitoring showed no significant sleep disordered breathing (AHI = 0.8) or hypoxia (marcella oxygen saturation of 89%). The patient slept adequately in supine position (supine AHI = 2.0; non-supine = 0.63). Snore was infrequent and light in intensity. There was no significant periodic leg movement of sleep. Cardiac rhythm was normal sinus rhythm without significant arrhythmia. No abnormal behavior (parasomnia) observed during the night. The patient was informed of these findings. I explained to her that the sleep study was normal. Allergies and Home Medications Drug allergies reviewed: Yes Home medication list reviewed: Yes Physical Exam Height: 5 ft Impression and Plan IMPRESSION: 1. Obstructive Sleep Apnea-Hypopnea Syndrome, resolved with weight loss. Her prior sleep study in [place] 6 years ago was borderline and then s he lost 60 lbs. No treatment is indicated. PLAN: 1. Avoid weight regain. 2. Return for a follow up on as needed basis. I spent 100% of the 15 minute phone call with the patient with greater than 50% of this spent counseling the patient and coordination of care. Visit Type: Telehealth Video Video Type: [place] Patient Location: Home Location of Provider: Office Patient agrees and consents to this telehealth visit type: Yes Patient agrees to have their insurance billed: Yes Time Spent with Patient (minutes): 15 Provider Statement: I spent 100% of the Telehealth Video Call with the patient with greater than 50% spent counseling the patient and coordination of care.
== END 2019-12-29 17:02 | disposition home or self-care (01) ==
LOC: SC 17:01
PROVIDERS: ATTEND Internal Medicine Pulmonary Disease
DX: G47.33 Obstructive sleep apnea (adult) (pediatric) (principal)

== ENCOUNTER 2020-01-15 10:38 | Emergency (ER) | payer MEDICARE, MEDICAID ==
--- NOTE | 2020-01-15 12:43 | ED Physician Documentation ---
PD HPI LOWER EXT INJURY - Stated complaint Stated Complaint: LT LEG PX - Chief complaint Chief Complaint: Ext Problem - History obtained from History obtained from: Patient - History of Present Illness PD HPI LOW EXT INJURY LOCATION: Right, Calf Type of injury: No: Fall, Twist Where injury occurred: Home Timing - onset: How many days ago (3-4) Timing - duration: Days (She woke with pain in the right calf 3 to 4 days ago. It is progressed upward to the behind in the lateral part of the knee and then the lateral thigh. Today she is having some pain in the back as well. She denied any swelling of the leg per se. No rash fever or sores. pain in any position.) Timing - details: Gradual onset, Still present Improved by: No: Rest Worsened by: Moving, Palpating Associated symptoms: No: Weakness, Numbness, Swelling Similar symptoms before: Has not had sx before Review of Systems Constitutional: denies: Fever, Chills Nose: denies: Rhinorrhea / runny nose, Congestion Throat: denies: Sore throat Respiratory: denies: Cough GI: denies: Nausea, Vomiting, Diarrhea : denies: Dysuria, Frequency Skin: denies: Rash, Lesions Musculoskeletal: reports: Back pain (just today, on right side). 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 : None HEENT: None Psych: None Musculoskeletal: Fibromyalgia, Chronic back pain Derm: None - Past Surgical History Past Surgical History: Yes General: Cholecystectomy, Appendectomy Ortho: Rotator cuff repair, Carpal Tunnel surgery, Spine surgery, Other /AUDIOVISUAL PRODUCTION SPECIALIST: section, Hysterectomy, Oophrectomy, Other HEENT: Other - Present Medications Home Medications: Ambulatory Orders Medication Instructions Recorded Confirmed Bupropion HCl [Wellbutrin Xl] 300 mg PO DAILY 04/21/15 10/24/15 Diclofenac Sodium [Voltaren] 100 gm TP DAILY PRN 04/21/15 10/24/15 Estradiol Valerate [Delestrogen] 10 mg IM ONCE 04/21/15 10/24/15 Levothyroxine [Synthroid] 100 mg ORAL DAILY 04/21/15 10/24/15 Lidocaine [Lidoderm] 700 mg TP ONCE PRN 04/21/15 10/24/15 Pregabalin [Lyrica] 300 mg ORAL DAILY 04/21/15 10/24/15 Topiramate 100 mg PO DAILY 04/21/15 10/24/15 Valsartan/Hydrochlorothiazide 1 tab ORAL DAILY 04/21/15 10/24/15 [Diovan Hct 80-12.5 mg Tablet] raNITIdine [Zantac] 150 mg PO BID 04/21/15 10/24/15 Multivitamin [Multi-Vitamin Daily] 1 ea PO DAILY 05/17/15 10/24/15 Vit D3/Folic Acid/B2/B6/B12 2,000 ea PO QDBREAKFAST 05/17/15 10/24/15 [Folgard Tablet] Guaifenesin/Pseudoephedrne HCl 1 each PO BID PRN #20 tab.er.12h 11/07/16 [Mucinex D ER 600-60 mg Tablet] Mometasone Furoate [Nasonex] 1 spray NS BID #1 spray.pump 11/07/16 guaiFENesin/CODEINE [Robitussin AC] 5 - 10 ml PO Q6H PRN #120 ml 11/07/16 predniSONE [Deltasone] 60 mg PO DAILY 5 Days tablet 11/07/16 Clindamycin HCl [Clindamycin 300MG 300 mg PO TID #21 capsule 12/22/18 CAP] Hydrocodone/Acetaminophen [Bascom 1 - 2 each PO Q6H PRN #20 tablet 12/22/18 5-325 Tablet] Naproxen 375 mg PO BID #20 tablet 12/22/18 Oxycodone HCl/Acetaminophen 1 - 2 each PO Q6H PRN #14 tablet 02/20/19 [Percocet 5-325 mg Tablet] Hydrocodone/Acetaminophen 1 - 2 each PO Q6H PRN #14 tablet 08/21/19 [Hydrocodon-Acetaminophen 5-325] Naproxen 375 mg PO BID #20 tablet 01/15/20 Oxycodone HCl/Acetaminophen 1 each PO Q6H PRN #18 tablet 01/15/20 [Percocet 5-325 mg Tablet] dexAMETHasone [Decadron] 4 mg PO DAILY #5 tablet 01/15/20 - Allergies Allergies/Adverse Reactions: Allergies Allergy/AdvReac Type Severity Reaction Status Date / Time prochlorperazine AdvReac Anxiety Verified 01/15/20 10:44 [From Compazine] prochlorperazine edisylate * AdvReac Anxiety Verified 01/15/20 10:44 [From Compazine] prochlorperazine maleate * AdvReac Anxiety Verified 01/15/20 10:44 [From Compazine] - Social History Does the pt smoke?: No Smoking Status: Never smoker Does the pt drink ETOH?: No Does the pt have substance abuse?: Yes Substance Use and Type: Marijuana - Immunizations Immunizations are current?: Yes - POLST Patient has POLST: No PD ED PE NORMAL - Vitals Vital signs reviewed: Yes - General General: Alert and oriented X 3, Well developed/nourished, Other (appears uncomfortable in pain of leg) - Neck Neck: Supple, no meningeal sign, No adenopathy - Cardiac Cardiac: RRR, No murmur - Respiratory Respiratory: Clear bilaterally - Abdomen Abdomen: Normal bowel sounds, Soft, Non tender, Non distended - Female Female : Deferred - Rectal Rectal: Deferred - Back Back: No CVA TTP, No spinal TTP (but is tender right lower lumbar soft tissue. No redness, rash nor sores. ) - Derm Derm: Normal color, Warm and dry - Extremities Extremities: Normal ROM s pain, No edema, Other (She has tenderness in the lateral calf as well as behind the knee and some to the lateral aspect of the right thigh posterior laterally. No real tenderness in the medial thigh. No edema. Is good color and capillary refill in the toes.) - Neuro Neuro: Alert and oriented X 3, No motor deficit, No sensory deficit, Normal speech Eye Opening: Spontaneous Motor: Obeys Commands Verbal: Oriented GCS Score: 15 Results - Vitals Vitals: Vital Signs - 24 hr 01/15/20 01/15/20 10:44 15:24 Temperature 36.6 C 36.2 C L Heart Rate 70 57 L Respiratory 16 16 Rate Blood Pressure 139/74 H 126/67 O2 Saturation 97 97 Oxygen O2 Source Room air - Labs Labs: Laboratory Tests 01/15/20 01/15/20 13:26 13:26 WBC 5.8 RBC 5.04 Hgb 14.6 Hct 46.5 MCV 92.3 MCH 29.0 MCHC 31.4 L RDW 15.2 H Plt Count 298 MPV 9.9 Neut # (Auto) 3.0 Lymph # (Auto) 2.1 [place] # (Auto) 0.5 Eos # (Auto) 0.2 Baso # (Auto) 0.1 Absolute Nucleated RBC 0.00 Nucleated RBC % 0.0 Sodium 139 Potassium 3.6 Chloride 101 Carbon Dioxide 29 Anion Gap 9.0 BUN 12 Creatinine 0.7 Estimated GFR (MDRD) 84 L Glucose 89 Calcium 9.3 Magnesium 2.5 Total Bilirubin 0.8 AST 33 ALT 50 Alkaline Phosphatase 75 Total Creatine Kinase 270 H Total Protein 7.1 Albumin 4.1 Globulin 3.0 Albumin/Globulin Ratio 1.4 Lipase 34 Departure - Departure Disposition: 01 Home, Self Care Clinical Impression: Right leg pain Condition: Stable Record reviewed to determine appropriate education?: Yes Instructions: ED Muscle Pain Leg Cramps Follow-Up: CRISTIAN STEVE ARNP [Primary Care Provider] - Prescriptions: dexAMETHasone [Decadron] 4 mg PO DAILY #5 tablet Naproxen 375 mg PO BID #20 tablet Oxycodone HCl/Acetaminophen [Percocet 5-325 mg Tablet] 1 each PO Q6H PRN #18 tablet PRN Reason: pain Comments: Your blood test do not show any signs of muscle breakdown. Your electrolytes are good. The ultrasound does not show any signs of blood clots. At this point cannot say for sure the cause of the pain. It may be nerve irritation since your back is hurting now as well. See what happens over the next couple of days regarding any new symptoms or improvement. Meanwhile try anti-inflammatories as well as the pain medicines for symptoms and see if this improves over the next couple of days. Discharge Date/Time: 01/15/20 15:33
[2020-01-15] MEDS ORDERED: KETOROLAC 15 MG/ML VIAL IVP STA (13:13)
[2020-01-15] MEDS ORDERED: MORPHINE 2 MG/ML CARPUJECT IVP STA (13:13)
[2020-01-15 13:31] LABS: BASOPHILS # (AUTO) 0.1 10^3/uL (0.0-0.1); BASOPHILS % (AUTO) 0.9 %; EOSINOPHILS # (AUTO) 0.2 10^3/uL (0.0-0.7); EOSINOPHILS % (AUTO) 3.3 %; HGB - HEMOGLOBIN 14.6 g/dL (12.0-16.0); LYMPHOCYTES # (AUTO) 2.1 10^3/uL (1.5-3.5); LYMPHOCYTES % (AUTO) 36.4 %; MEAN CORPUSCULAR HGB CONC 31.4 g/dL (32.0-36.0); MEAN CORPUSCULAR VOLUME 92.3 fL (81.0-99.0); MEAN PLATELET VOLUME 9.9 fL (7.9-10.8); MONOCYTES # (AUTO) 0.5 10^3/uL (0.0-1.0); MONOCYTES % (AUTO) 7.8 %; NEUTROPHILS % (AUTO) 51.3 %; PLT - PLATELET COUNT 298 10^3/uL (130-450); RED BLOOD COUNT 5.04 10^6/uL (4.20-5.40); RED CELL DISTRIBUTION WIDTH 15.2 % (12.0-15.0); WHITE BLOOD COUNT 5.8 x10^3/uL (4.8-10.8)
[2020-01-15 13:43] LABS: ALBUMIN 4.1 g/dL (3.2-5.5); ALBUMIN/GLOBULIN RATIO 1.4 (1.0-2.2); BILIRUBIN,TOTAL 0.8 mg/dL (0.2-1.0); CALCIUM 9.3 mg/dL (8.5-10.3); CREATININE 0.7 mg/dL (0.4-1.0); MAGNESIUM 2.5 mg/dL (1.7-2.8); TOTAL PROTEIN 7.1 g/dL (6.7-8.2)
--- NOTE | 2020-01-15 14:17 | Ultrasound Report ---
PROCEDURE: Duplex Ext Veins Right INDICATIONS: r calf pain TECHNIQUE: Real-time imaging, as well as color and pulse Doppler interrogation, were performed of the lower extr emity deep veins from the inguinal ligament to the popliteal fossa. COMPARISON: None. FINDINGS: The deep veins are normally compressible, and free of intraluminal thrombus. Color and pu lse Doppler demonstrate normal phasic intraluminal flow. There is normal augmentation response to di stal compression maneuver. Veins of the right calf are suboptimally visualized due to soft tissue richard ma and small vessel size. IMPRESSION: No evidence of deep vein thrombosis involving the right lower extremity. Please note vei ns of the right calf are suboptimally visualized due to soft tissue edema and small vessel size. Reviewed by: Kiya García MD, PhD on 01/15/2020 2:15 PM PDT Approved by: Kiya García MD, PhD on 01/15/2020 2:15 PM PDT Station ID: [id number]
[2020-01-15] MEDS ORDERED: HYDROmorphone 1 MG/ML CARPUJECT IVP STA (14:36)
[2020-01-15] MEDS ORDERED: DEXAMETHASONE 10 MG/ML VIAL IVP STA (14:45)
[2020-01-15 15:25] VITALS: BP 126/67
== END 2020-01-15 15:33 | disposition home or self-care (01) ==
LOC: ED 10:38
DX: M79.661 Pain in right lower leg (principal); M25.561 Pain in right knee; M79.651 Pain in right thigh; M54.5 Low back pain; G89.29 Other chronic pain; I10 Essential (primary) hypertension
CPT/HCPCS: 36415; 80053; 82550; 83690; 83735; 85025; 93971; 96374; 96375; 99284; 99285; J1170

== ENCOUNTER 2020-01-21 11:21 | Outpatient (CLI) | payer MEDICARE, MEDICAID ==
--- NOTE | 2020-01-21 16:30 | XRAY Report ---
PROCEDURE: Knee 3 View RT INDICATIONS: RT KNEE PX TECHNIQUE: 3 views of the right knee(s) were acquired. COMPARISON: None. FINDINGS: Bones: No fractures or dislocations. No suspicious bony lesions. Mild to moderate medial and arce lofemoral compartment narrowing. Questionable minimal lateral compartment narrowing. Minimal periarti cular osteophytes. No erosions. Soft tissues: Mild joint effusion. No suspicious soft tissue calcifications. IMPRESSION: Mild to moderate medial patellofemoral compartment narrowing suggestive osteoarthritis. Minimal lateral compartment narrowing is also noted. Reviewed by: Anat Valencia MD on 01/21/2020 4:29 PM PDT Approved by: Anat Valencia MD on 01/21/2020 4:29 PM PDT Station ID: [id number]
== END 2020-01-21 11:22 | disposition home or self-care (01) ==
LOC: DI.S 11:21
PROVIDERS: ATTEND Nurse Practitioner Family
DX: M25.561 Pain in right knee (principal)

== ENCOUNTER 2020-09-14 13:07 | Outpatient (CLI) | payer MEDICARE, MEDICAID ==
--- NOTE | 2020-09-15 14:14 | Mammography Report ---
BILATERAL DIGITAL SCREENING MAMMOGRAM 3D/2D WITH EXAGGERATED CC: 09/14/2020 CLINICAL: Routine screening. Comparison is made to exams dated: 08/08/2017 mammogram and 03/13/2016 mammogram - [facility]. There are scattered fibroglandular elements in both breasts. No significant masses, calcifications, or other findings are seen in either breast. There has been no significant interval change. IMPRESSION: NEGATIVE There is no mammographic evidence of malignancy. A 1 year screening mammogram is recommended. This exam was interpreted at Station ID: [id number]. NOTE: For mammograms, a report in lay terms will be sent to the patient. Approximately 15% of breast malignancies will not be visualized mammographically. In the management of a palpable breast mass, a negative mammogram must not discourage biopsy of a clinically suspicious lesion. Electronically Signed By: Jeanna jovel/penrad:09/14/2020 15:59:52 ACR BI-RADS Category 1: Negative 3341F PARENCHYMAL PATTERN: (A) - The breast(s) demonstrate(s) scattered fibroglandular densities. BI-RADS CATEGORY: (1) - 1 RECOMMENDATION: (ANNUAL) - Recommend routine annual screening mammography. [id number] 1 year screening LATERALITY: (B)
== END 2020-09-14 13:08 | disposition home or self-care (01) ==
LOC: DI.S 13:07
DX: Z12.31 Encounter for screening mammogram for malignant neoplasm of breast (principal)

== ENCOUNTER 2021-02-07 12:15 | Outpatient (CLI) | payer MEDICARE, MEDICAID ==
--- NOTE | 2021-02-07 13:04 | XRAY Report ---
PROCEDURE: Hip w/Pelvis 2-3V RT INDICATIONS: PAIN IN RIGHT HIP JOINT TECHNIQUE: AP pelvis with lateral view(s) of the right hip(s). COMPARISON: Prior left hip series dated 08/21/2019 FINDINGS: Bones: No fractures or dislocations. Pelvic ring appears intact. No suspicious bony lesions. Mild symmetric hip joint narrowing with periarticular osteophyte formation. Lower lumbar spine degenerati ve disc and facet disease. Soft tissues: The visualized bowel gas pattern is normal. No suspicious soft tissue calcifications. IMPRESSION: Symmetric hip joint degeneration similar to prior examination. Reviewed by: HOA Bruno on 02/07/2021 1:03 PM PDT Approved by: Jose Greene MD on 02/07/2021 1:03 PM PDT Station ID: [id number]
== END 2021-02-07 12:16 | disposition home or self-care (01) ==
LOC: DI.S 12:15
PROVIDERS: ATTEND Nurse Practitioner Family
DX: M16.11 Unilateral primary osteoarthritis, right hip (principal)

== ENCOUNTER 2021-03-13 10:32 | Outpatient (CLI) | payer MEDICARE, MEDICAID ==
[2021-03-13 14:29] LABS: CALCIUM 9.3 mg/dL (8.5-10.3); CREATININE 0.7 mg/dL (0.4-1.0); POTASSIUM 3.3 mmol/L (3.5-5.0)
[2021-03-13 14:42] LABS: THYROID STIMULATING HORMONE 3.35 uIU/mL (0.34-5.60)
== END 2021-03-13 10:33 | disposition home or self-care (01) ==
LOC: LAB.S 10:32
PROVIDERS: ATTEND Nurse Practitioner Family
DX: E03.9 Hypothyroidism, unspecified (principal); I10 Essential (primary) hypertension
CPT/HCPCS: 36415; 80048; 84443

== ENCOUNTER 2023-02-21 12:34 | Outpatient (CLI) | payer MEDICARE ==
--- NOTE | 2023-02-22 12:56 | Mammography Report ---
BILATERAL DIGITAL DIAGNOSTIC MAMMOGRAM 3D/2D: 02/21/2023 CLINICAL: Bilateral nipple pain. Comparison is made to exams dated: 09/14/2020 mammogram, 08/08/2017 mammogram, and 03/13/2016 mammogram - [facility]. There are scattered areas of fibroglandular density in both breasts (category b / 25%-50% glandular t issue). There is a stable 0.4 cm oval focal asymmetry in the left breast at 11 o'clock middle depth. No other significant masses, calcifications, or other findings are seen in either breast. IMPRESSION: INCOMPLETE: NEEDS ADDITIONAL IMAGING EVALUATION The stable 0.4 cm oval focal asymmetry in the left breast is indeterminate. A targeted ultrasound is recommended and will immediately follow. Based on the Tyrer Cuzick model (a risk assessment model) the patients lifetime risk is 8.5% and her 10 year risk is 4.5%. According to the ACR, ACS, and NCCN guidelines, an annual breast MRI exam mona g with mammogram is recommended if the patients lifetime risk is 20% or greater. This exam was interpreted at Station ID: [id number]. NOTE: For mammograms, a report in lay terms will be sent to the patient. Approximately 15% of breast malignancies will not be visualized mammographically. In the management of a palpable breast mass, a negative mammogram must not discourage biopsy of a clinically suspicious lesion. Electronically Signed By: Jewel Foster M.D. slc/:02/21/2023 13:47:24 ACR BI-RADS Category 0: Incomplete 3340F PARENCHYMAL PATTERN: (A) - The breast(s) demonstrate(s) scattered fibroglandular densities. BI-RADS CATEGORY: (0) - 0 Ultrasound [id number] Immediate follow-up LATERALITY: (B)
--- NOTE | 2023-02-22 12:56 | Ultrasound Report ---
LIMITED ULTRASOUND OF LEFT BREAST: 02/21/2023 CLINICAL: Patient returns today to evaluate a focal asymmetry in the left breast. Comparison is made to exams dated: 02/21/2023 mammogram, 09/14/2020 mammogram, 08/08/2017 mammogram, and 03/13/2016 mammogram - [facility]. Ultrasound of the left breast 11-1 o'clock region was performed. Diop scale images of the real-time examination were reviewed. No significant abnormalities were seen sonographically in the left breast in the region of the stable focal asymmetry. IMPRESSION: BENIGN There is no sonographic evidence of malignancy. The stable focal asymmetry seen on mammogram is benign. No ultrasound correlate. Patient describes bilateral nipple pain. Denies skin changes and nipple discharge. Exam findings were conveyed to the patient. Patient is advised to monitor for significant change. Cli nical follow-up as needed. A 1 year screening mammogram is recommended. This exam was interpreted at Station ID: [id number]. Electronically Signed By: Jewel Foster M.D. slc/:02/21/2023 13:50:50 Ultrasound BI-RADS: 2 Benign BI-RADS CATEGORY: (2) - 2 Mammogram [id number] 1 year screening LATERALITY: (B)
== END 2023-02-21 12:35 | disposition home or self-care (01) ==
LOC: DI 12:34
PROVIDERS: ATTEND Emergency Medicine
DX: N64.59 Other signs and symptoms in breast (principal); R92.8 Other abnormal and inconclusive findings on diagnostic imaging of breast

== ENCOUNTER 2023-06-21 09:10 | Outpatient (CLI) | payer MEDICARE ==
[2023-06-21 15:26] LABS: HCT - HEMATOCRIT 45.4 % (37.0-47.0); HGB - HEMOGLOBIN 14.1 g/dL (12.0-16.0); MEAN CORPUSCULAR HEMOGLOBIN 28.7 pg (27.0-31.0); MEAN CORPUSCULAR HGB CONC 31.1 g/dL (32.0-36.0); MEAN CORPUSCULAR VOLUME 92.3 fL (81.0-99.0); MEAN PLATELET VOLUME 11.5 fL (7.9-10.8); RED BLOOD COUNT 4.92 10^6/uL (4.20-5.40); WHITE BLOOD COUNT 5.8 x10^3/uL (4.8-10.8)
[2023-06-21 16:08] LABS: ALBUMIN 4.1 g/dL (3.2-5.5); ALBUMIN/GLOBULIN RATIO 1.6 (1.0-2.2); ALKALINE PHOSPHATASE 82 IU/L (42-121); ALT ALANINE AMINOTRANSFERASE 16 IU/L (10-60); AST ASPARTATE AMINOTRANSFERASE 18 IU/L (10-42); BILIRUBIN,TOTAL 0.7 mg/dL (0.2-1.0); BUN - BLOOD UREA NITROGEN 13 mg/dL (6-20); CALCIUM 9.2 mg/dL (8.5-10.3); CARBON DIOXIDE - CO2 22 mmol/L (21-32); CHLORIDE 107 mmol/L (101-111); CHOL/HDL RATIO 3.6 (<4.4); CHOLESTEROL 280 mg/dL; CREATININE 0.6 mg/dL (0.6-1.3); GFR - MDRD 100 (>89); GLUCOSE 99 mg/dL (74-104); HDL CHOLESTEROL 77 mg/dL; LDL CHOLESTEROL,CALCULATED 181 mg/dL; LDL/HDL RATIO 2.4 (<4.4); POTASSIUM 3.7 mmol/L (3.5-4.5); SODIUM 140 mmol/L (135-145); TOTAL PROTEIN 6.6 g/dL (6.4-8.9); TRIGLYCERIDES 111 mg/dL (48-352); VLDL CHOLESTEROL 22 mg/dL
[2023-06-21 16:21] LABS: THYROID STIMULATING HORMONE 1.82 uIU/mL (0.34-5.60)
== END 2023-06-21 09:11 | disposition home or self-care (01) ==
LOC: LAB.S 09:10
PROVIDERS: ATTEND Family Medicine
DX: K21.9 Gastro-esophageal reflux disease without esophagitis (principal); I10 Essential (primary) hypertension; E03.9 Hypothyroidism, unspecified; E78.5 Hyperlipidemia, unspecified
CPT/HCPCS: 36415; 80053; 80061; 83721; 84439; 84443; 85027